=== PATIENT | male | born 1965 | race Caucasian/White ===

== ENCOUNTER 2023-05-24 10:47 | Inpatient (IN) | payer MEDICAID ==
[~2023-05-24] VITALS: Ht 162.6 cm; Wt 68.0 kg
[2023-05-24 11:02] VITALS: BP 141/91; PULSE 80; RESP 18; TEMP 98.8; O2SAT 100
[2023-05-24] MEDS ORDERED: KETOROLAC 30 MG/ML VIAL IM ONE (11:15)
[2023-05-24 11:29] LABS: APPEARANCE,URINE CLEAR (CLEAR); BILIRUBIN,URINE NEGATIVE (NEGATIVE); BLOOD, URINE TRACE-L (NEGATIVE); COLOR,URINE YELLOW (YELLOW); LEUKOCYTE ESTERASE ,URINE NEGATIVE (NEGATIVE); NITRITE, URINE NEGATIVE (NEGATIVE); PROTEIN,URINE NEGATIVE (NEGATIVE); UGLUCOSE NEGATIVE (NEGATIVE)
[2023-05-24 11:39] LABS: BACTERIA,URINE FEW /HPF (None Seen); RBC,URINE 0-5 /HPF (0-5); SQUAMOUS EPITHELIAL CELL,UR 0-3 (FEW) /LPF (0-3 (FEW)); WBC,URINE 0-5 /HPF (0-5)
[2023-05-24] MEDS ORDERED: MORPHINE SULFATE 4 MG/ML SYR IVP ONE (13:35)
[2023-05-24] MEDS ORDERED: ONDANSETRON 4 MG/2 ML VIAL IVP ONE (13:35)
[2023-05-24 13:46] LABS: BASOPHILS % (AUTO) 0.4 % (0.0-2.0); EOSINOPHILS % (AUTO) 0.5 % (0.0-4.0); HEMATOCRIT 38.9 % (36-52); HEMOGLOBIN 13.3 g/dL (12.0-18.0); LYMPHOCYTES # (AUTO) 1.2 K/uL (2.0-11.5); LYMPHOCYTES % (AUTO) 15.2 % (20.5-51.1); MEAN CORPUSCULAR HEMOGLOBIN 30 pg (27-31); MEAN CORPUSCULAR HGB CONC 34 g/dL (33-37); MEAN CORPUSCULAR VOLUME 87.1 fL (80-94); MONOCYTES # (AUTO) 0.8 K/uL (0.8-1.0); MONOCYTES % (AUTO) 10.3 % (1.7-9.3); NEUTROPHILS # (AUTO) 5.9 K/uL (1.8-7.7); NEUTROPHILS % (AUTO) 73.6 % (42.2-75.2); PLATELET COUNT (AUTO) 175 K/uL (140-450); RED BLOOD CELL COUNT(AUTO) 4.46 MIL/uL (4.20-6.10)
[2023-05-24 14:04] LABS: INR 0.98 (0.8-1.2); PARTIAL THROMBOPLASTIN TIME 32.6 secs (22-35.6); PROTHROMBIN TIME 10.3 secs (10.8-13.4)
[2023-05-24] MEDS: DEXT 5% / NACL 0.45% 1,000 ML IV SCH (14:05)
[2023-05-24 14:11] LABS: ALBUMIN 3.3 g/dL (3.4-5.0); ANION GAP 11.6 (8-16); CALCIUM 8.5 mg/dL (8.5-10.1); CARBON DIOXIDE 25.7 mmol/L (21-32); CREATININE 0.8 mg/dL (0.6-1.3); POTASSIUM 3.3 mmol/L (3.5-5.1); TOTAL BILIRUBIN 1.3 mg/dL (0.0-1.0); TOTAL PROTEIN, SERUM 8.1 g/dL (6.4-8.2)
[2023-05-24] MEDS ORDERED: KCL 20 MEQ IN 100 mL PREMIX 100 ML IV SCH (16:22)
[2023-05-24] MEDS ORDERED: LIDOCAINE/EPI MPF 1%1:200000 30 ML VIAL INJ ONE (17:51)
[2023-05-24] MEDS ORDERED: BUPIVACAINE MPF 0.25% 10 ML VIAL INJ ONE (17:51)
[2023-05-24] MEDS ORDERED: HYDROmorphone PFS 2 MG/ML SYR ONE (18:10)
[2023-05-24] MEDS ORDERED: MIDAZOLAM 2 MG/2 ML VIAL ONE (18:10)
[2023-05-24] MEDS ORDERED: ROCURONIUM 50 MG/5 ML VIAL IV ONE (18:12)
[2023-05-24] MEDS ORDERED: PROPOFOL 200 MG/20 ML VIAL IV ONE (18:13)
[2023-05-24] MEDS ORDERED: ceFAZolin 2,000 MG VIAL ONE (18:23)
[2023-05-24] MEDS ORDERED: ONDANSETRON 4 MG/2 ML VIAL IVP PRN ×2 (18:40→20:20)
[2023-05-24] MEDS ORDERED: LORazepam 2 MG/ML VIAL IVP PRN (18:40)
[2023-05-24] MEDS ORDERED: MORPHINE SULFATE 2 MG/ML SYR IVP PRN (18:40)
[2023-05-24] MEDS ORDERED: METOCLOPRAMIDE 10 MG/2 ML INJ VIAL ONE (18:54)
[2023-05-24] MEDS ORDERED: ONDANSETRON 4 MG/2 ML VIAL ONE (18:54)
[2023-05-24] MEDS ORDERED: ePHEDrine 50 MG/ML VIAL ONE (18:54)
[2023-05-24] MEDS ORDERED: SUGAMMADEX SODIUM 200 MG/2 ML VIAL IV ONE (19:56)
[2023-05-24] MEDS ORDERED: MEPERIDINE 25 MG/ML SYR IVP PRN (20:20)
[2023-05-24] MEDS ORDERED: HYDROmorphone 1 MG/ML AMP IVP PRN (20:20)
[2023-05-24] MEDS ORDERED: HYDROcodone/APAP 5/325 MG 1 TAB TAB PO PRN (20:25)
[2023-05-24 21:15] VITALS: BP 135/61; PULSE 87; RESP 18; TEMP 97; O2SAT 100
[2023-05-24 21:20] VITALS: PULSE 85; RESP 18; O2SAT 98
[2023-05-24] MEDS: MORPHINE SULFATE 4 MG/ML SYR IVP PRN (22:35)
[2023-05-25] MEDS: DEXT 5% / NACL 0.45% 1,000 ML IV SCH ×3 (00:05→20:24)
[2023-05-25 04:00] VITALS: BP 138/66; PULSE 88; PULSE 92; RESP 19; TEMP 98.2; O2SAT 98
[2023-05-25] MEDS: MORPHINE SULFATE 4 MG/ML SYR IVP PRN (05:04)
[2023-05-25 06:11] LABS: ANION GAP 11.3 (8-16); CALCIUM 7.6 mg/dL (8.5-10.1); CARBON DIOXIDE 25.9 mmol/L (21-32); CREATININE 0.7 mg/dL (0.6-1.3); POTASSIUM 3.2 mmol/L (3.5-5.1)
[2023-05-25 06:19] LABS: BASOPHILS % (AUTO) 0.2 % (0.0-2.0); EOSINOPHILS # (AUTO) 0.1 K/uL (0-0.4); HEMATOCRIT 37.9 % (36-52); HEMOGLOBIN 12.6 g/dL (12.0-18.0); LYMPHOCYTES # (AUTO) 1.1 K/uL (2.0-11.5); LYMPHOCYTES % (AUTO) 11.5 % (20.5-51.1); MEAN CORPUSCULAR HEMOGLOBIN 30 pg (27-31); MEAN CORPUSCULAR HGB CONC 33 g/dL (33-37); MEAN CORPUSCULAR VOLUME 88.4 fL (80-94); MONOCYTES # (AUTO) 1.2 K/uL (0.8-1.0); MONOCYTES % (AUTO) 12.6 % (1.7-9.3); NEUTROPHILS # (AUTO) 7.2 K/uL (1.8-7.7); NEUTROPHILS % (AUTO) 74.7 % (42.2-75.2); PLATELET COUNT (AUTO) 175 K/uL (140-450); RED BLOOD CELL COUNT(AUTO) 4.29 MIL/uL (4.20-6.10); RED CELL DISTRIBUTION WIDTH 13.2 % (11.6-13.7); WHITE BLOOD COUNT (AUTO) 9.7 K/uL (4.8-10.8)
[2023-05-25 08:00] VITALS: BP 113/60; PULSE 88; PULSE 97; RESP 19; TEMP 98.3; O2SAT 97
[2023-05-25] MEDS: DOCUSATE SODIUM 100 MG GELCAP PO SCH (08:42)
[2023-05-25] MEDS: HYDROmorphone 1 MG/ML AMP IVP PRN ×3 (08:42→22:11)
[2023-05-25] MEDS ORDERED: POTASSIUM CHLORIDE 10 MEQ TABER PO SCH (13:30)
[2023-05-25 16:00] VITALS: BP 128/70; PULSE 92; RESP 18; TEMP 98.5; O2SAT 98
[2023-05-25 20:00] VITALS: BP 144/80; PULSE 90; RESP 18; TEMP 97.8; O2SAT 99
[2023-05-26 05:31] LABS: BASOPHILS % (AUTO) 0.1 % (0.0-2.0); EOSINOPHILS % (AUTO) 0.2 % (0.0-4.0); HEMATOCRIT 36.6 % (36-52); HEMOGLOBIN 12.2 g/dL (12.0-18.0); LYMPHOCYTES # (AUTO) 0.9 K/uL (2.0-11.5); LYMPHOCYTES % (AUTO) 8.2 % (20.5-51.1); MEAN CORPUSCULAR HEMOGLOBIN 29 pg (27-31); MEAN CORPUSCULAR HGB CONC 33 g/dL (33-37); MONOCYTES # (AUTO) 1.3 K/uL (0.8-1.0); MONOCYTES % (AUTO) 11.7 % (1.7-9.3); NEUTROPHILS # (AUTO) 8.6 K/uL (1.8-7.7); NEUTROPHILS % (AUTO) 79.8 % (42.2-75.2); PLATELET COUNT (AUTO) 170 K/uL (140-450); RED BLOOD CELL COUNT(AUTO) 4.16 MIL/uL (4.20-6.10); RED CELL DISTRIBUTION WIDTH 13.2 % (11.6-13.7); WHITE BLOOD COUNT (AUTO) 10.7 K/uL (4.8-10.8)
[2023-05-26] MEDS: HYDROmorphone 1 MG/ML AMP IVP PRN (05:52)
[2023-05-26] MEDS: DEXT 5% / NACL 0.45% 1,000 ML IV SCH ×2 (05:54→16:21)
[2023-05-26 06:37] LABS: ALBUMIN 2.7 g/dL (3.4-5.0); ANION GAP 15.4 (8-16); CALCIUM 8.1 mg/dL (8.5-10.1); CARBON DIOXIDE 23.1 mmol/L (21-32); CREATININE 0.7 mg/dL (0.6-1.3); POTASSIUM 3.5 mmol/L (3.5-5.1); TOTAL BILIRUBIN 1.4 mg/dL (0.0-1.0); TOTAL PROTEIN, SERUM 7.4 g/dL (6.4-8.2)
[2023-05-26 08:00] VITALS: BP 118/61; PULSE 83; RESP 18; TEMP 97.1; O2SAT 98
[2023-05-26] MEDS: DOCUSATE SODIUM 100 MG GELCAP PO SCH (09:00)
[2023-05-26] MEDS: MORPHINE SULFATE 4 MG/ML SYR IVP PRN (10:09)
[2023-05-26] MEDS ORDERED: DOCU-299 PO (10:12)
[2023-05-26] MEDS ORDERED: ACET-9525 PO (10:12)
[2023-05-26] MEDS ORDERED: IBUPROFEN 600 MG TAB PO PRN (11:50)
[2023-05-26 16:00] VITALS: BP 138/72; PULSE 90; RESP 18; TEMP 98.1; O2SAT 99
[2023-05-26 20:00] VITALS: PULSE 90; RESP 16; O2SAT 97
[2023-05-27 00:04] VITALS: BP 130/67; PULSE 90; RESP 16; TEMP 97.8; O2SAT 97
[2023-05-27] MEDS: DEXT 5% / NACL 0.45% 1,000 ML IV SCH (02:05)
[2023-05-27 05:39] LABS: BASOPHILS % (AUTO) 0.1 % (0.0-2.0); EOSINOPHILS % (AUTO) 0.2 % (0.0-4.0); HEMATOCRIT 34.6 % (36-52); HEMOGLOBIN 11.7 g/dL (12.0-18.0); LYMPHOCYTES # (AUTO) 0.4 K/uL (2.0-11.5); LYMPHOCYTES % (AUTO) 4.7 % (20.5-51.1); MEAN CORPUSCULAR HEMOGLOBIN 30 pg (27-31); MEAN CORPUSCULAR HGB CONC 34 g/dL (33-37); MEAN CORPUSCULAR VOLUME 88.8 fL (80-94); MONOCYTES # (AUTO) 1.2 K/uL (0.8-1.0); MONOCYTES % (AUTO) 12.2 % (1.7-9.3); NEUTROPHILS # (AUTO) 7.8 K/uL (1.8-7.7); NEUTROPHILS % (AUTO) 82.8 % (42.2-75.2); PLATELET COUNT (AUTO) 155 K/uL (140-450); RED CELL DISTRIBUTION WIDTH 12.9 % (11.6-13.7); WHITE BLOOD COUNT (AUTO) 9.5 K/uL (4.8-10.8)
[2023-05-27 07:26] LABS: ANION GAP 16.6 (8-16); CALCIUM 8.2 mg/dL (8.5-10.1); CARBON DIOXIDE 24.7 mmol/L (21-32); CREATININE 0.8 mg/dL (0.6-1.3); POTASSIUM 3.3 mmol/L (3.5-5.1)
[2023-05-27 08:00] VITALS: BP 131/98; PULSE 89; RESP 1; RESP 18; TEMP 97.9; O2SAT 89; O2SAT 98
[2023-05-27] MEDS: DOCUSATE SODIUM 100 MG GELCAP PO SCH ×2 (08:40→17:00)
[2023-05-27] MEDS ORDERED: MAGNESIUM HYDROXIDE 2400 MG/30 ML UDC PO SCH (09:15)
[2023-05-27] MEDS ORDERED: POTASSIUM CHLORIDE 10 MEQ TABER PO SCH (10:00)
[2023-05-27 15:49] VITALS: BP 120/67; PULSE 103; RESP 18; TEMP 98.5
[2023-05-27 16:00] VITALS: BP 109/48; PULSE 108; RESP 19; TEMP 100.1; O2SAT 97
[2023-05-27 20:00] VITALS: PULSE 84; RESP 18; O2SAT 94
[2023-05-28] VITALS: BP 100/62; PULSE 88; RESP 18; TEMP 98.8; O2SAT 95
[2023-05-28 05:39] LABS: BASOPHILS % (AUTO) 0.2 % (0.0-2.0); EOSINOPHILS # (AUTO) 0.1 K/uL (0-0.4); EOSINOPHILS % (AUTO) 0.7 % (0.0-4.0); HEMATOCRIT 32.6 % (36-52); HEMOGLOBIN 10.8 g/dL (12.0-18.0); LYMPHOCYTES # (AUTO) 0.8 K/uL (2.0-11.5); LYMPHOCYTES % (AUTO) 10.4 % (20.5-51.1); MEAN CORPUSCULAR HEMOGLOBIN 29 pg (27-31); MEAN CORPUSCULAR HGB CONC 33 g/dL (33-37); MEAN CORPUSCULAR VOLUME 88.7 fL (80-94); MONOCYTES % (AUTO) 12.6 % (1.7-9.3); NEUTROPHILS % (AUTO) 76.1 % (42.2-75.2); PLATELET COUNT (AUTO) 185 K/uL (140-450); RED BLOOD CELL COUNT(AUTO) 3.68 MIL/uL (4.20-6.10); WHITE BLOOD COUNT (AUTO) 7.9 K/uL (4.8-10.8)
[2023-05-28 06:17] LABS: ALBUMIN 2.1 g/dL (3.4-5.0); ANION GAP 13.5 (8-16); CALCIUM 8.2 mg/dL (8.5-10.1); CARBON DIOXIDE 25.9 mmol/L (21-32); CREATININE 0.8 mg/dL (0.6-1.3); POTASSIUM 3.4 mmol/L (3.5-5.1); TOTAL BILIRUBIN 0.7 mg/dL (0.0-1.0); TOTAL PROTEIN, SERUM 6.8 g/dL (6.4-8.2)
[2023-05-28 08:00] VITALS: BP 118/72; PULSE 19; PULSE 89; RESP 18; RESP 19; TEMP 98.1; O2SAT 100; O2SAT 89
[2023-05-28] MEDS: DOCUSATE SODIUM 100 MG GELCAP PO SCH (09:41)
== END 2023-05-28 14:35 | disposition home health service (06) | DRG 228 ==
LOC: MED 10:47 → MMU 14:02 → MTU 21:20
PROVIDERS: ADMIT Preventive Medicine Preventive Medicine/Occupational Environmental Medicine; ATTEND Preventive Medicine Preventive Medicine/Occupational Environmental Medicine
PROC: 0YU60JZ Supplement Left Inguinal Region with Synthetic Substitute, Open Approach (ICD-10-PCS; principal; 2023-05-24 18:00)
DX: K40.30 Unilateral inguinal hernia, with obstruction, without gangrene, not specified as recurrent (principal); E83.51 Hypocalcemia; E87.1 Hypo-osmolality and hyponatremia; E88.09 Other disorders of plasma-protein metabolism, not elsewhere classified; E87.6 Hypokalemia; E80.6 Other disorders of bilirubin metabolism; R73.9 Hyperglycemia, unspecified; D64.9 Anemia, unspecified
CPT/HCPCS: 36415; 72192; 73562; 76870; 80048; 80053; 81001; 82948; 85025; 85610; 85730; 87081; 87491; 88302; 93005; 93971; 96361; 96372; 96374; 96375; 97110; 97112; 97116; 97530; 99285; C1781; J1170; J1885; J2001; J2250; J2270; J2405; J2704; J2765; J3480; J3490; J7120; Q0092

== ENCOUNTER 2023-06-07 14:29 | Emergency (ER) | payer MEDICAID ==
[~2023-06-07] VITALS: Ht 162.6 cm; Wt 72.6 kg
[~2023-06-07 14:29] MED LIST: ACET-9525 PO; DOCU-299 PO
[2023-06-07 16:00] VITALS: BP 141/67; PULSE 80; RESP 18; TEMP 98.6; O2SAT 98
[2023-06-07] MEDS ORDERED: IBUP-1842 PO (16:22)
[2023-06-07 16:50] VITALS: BP 130/67; PULSE 80; RESP 18; TEMP 98.6; O2SAT 98
== END 2023-06-07 19:38 | disposition home or self-care (01) ==
LOC: MED 14:29
DX: Z48.00 Encounter for change or removal of nonsurgical wound dressing (principal); Z79.899 Other long term (current) drug therapy; Z79.1 Long term (current) use of non-steroidal anti-inflammatories (NSAID); Z98.890 Other specified postprocedural states
CPT/HCPCS: 99282